=== PATIENT | female | born 1980 | race Caucasian/White ===

== ENCOUNTER 2020-07-10 15:36 | Inpatient (IN) ==
[2020-07-10] MEDS ORDERED: SODIUM CHLORIDE 0.9% 1,000 ML IV STA (16:25)
[2020-07-10] MEDS ORDERED: VANCOMYCIN INJ 1,250 MG in SODIUM CHLORIDE 0.9% 250 ML IV STA (16:37)
[2020-07-10] MEDS ORDERED: CEFEPIME 2,000 MG in SODIUM CHLORIDE 0.9% 100 ML IV STA (16:38)
[2020-07-10 17:26] LABS: Basophils # 0.1 10*3/uL (0.0-0.2); Basophils % 0.4 % (0.0-0.8); Eosinophils % 0.2 % (0.00-10.9); Hematocrit 31.9 VOL% (35.7-47.0); Hemoglobin 10.3 GM/DL (12.0-16.0); Immature Granulocytes % 0.4 %; Immature Granulocytes Absolute 0.06 #; Lymphocytes # 2.2 10*3/uL (1.4-4.0); Lymphocytes % 13.8 % (21.3-54.2); Mean Corpuscular HGB Conc 32.3 GM/DL (32-36); Mean Corpuscular Volume 94.9 FL (87-102); Mean Platelet Volume 10.3 FL (9.6-12.0); Monocytes % 9.3 % (1.7-12.7); Neutrophils % 75.9 % (38.7-73.9); Platelet Count 258 T/CUMM (130-400); Red Blood Count 3.36 MC/CUMM (3.8-5.5); Red Cell Distribution Width 12.6 % (9.3-17.3); White Blood Count 16.3 T/CUMM (4-12)
[2020-07-10 17:37] LABS: Albumin 2.9 G/DL (3.4-5.0); Bilirubin,Total 0.5 MG/DL (0.2-1.0); Calcium 8.2 MG/DL (8.5-10.1); Osmolality,Calculated 278.5 MOS/KG (273-304); Potassium 3.5 MMOL/L (3.5-5.1); Total Protein 6.6 G/DL (6.4-8.2)
[2020-07-10 18:28] LABS: Bacteria,Urine Few /HPF (Few); Bilirubin,Urine Negative (Negative); Blood, Urine Negative (Negative); Glucose,Urine (UA) Negative (Negative); Ketones,Urine 5 mg/dL (Negative); Mucus,Urine Occasional /LPF (Occasional); Nitrite,Urine Positive (Negative); Protein,Urine 30 MG/DL; RBC,Urine 1 /HPF (0-4); Squamous Epithelial Cell,Urine Occasional /HPF (0-10); Urine Appearance Slightly Hazy (Clear); Urine Color Amber (Yellow); Urine Specific Gravity 1.025 (1.001-1.035); WBC,Urine 2 /HPF (0-6)
[2020-07-10 18:29] LABS: Cannabinoid Screen,Urine Negative (Negative); Opiate Screen,Urine Negative (Negative)
[2020-07-10 18:30] LABS: Barbiturates Screen,Urine Negative (Negative); Benzodiazepines Screen,Urine Positive (Negative); Phencyclidine Screen,Urine Negative (Negative)
[2020-07-10] MEDS ORDERED: GLUCAGON 1 MG VIAL IM PRN (18:55)
[2020-07-10] MEDS ORDERED: DOCUSATE SODIUM 100 MG CAPSULE PO PRN (18:55)
[2020-07-10] MEDS ORDERED: ONDANSETRON 4 MG/2 ML VIAL IV PRN (18:55)
[2020-07-10] MEDS ORDERED: DEXTROSE 50% 25 GM/50 ML VIAL IV PRN (18:55)
[2020-07-10] MEDS ORDERED: LORazepam 2 MG/1 ML VIAL IV PRN (19:00)
[2020-07-10] MEDS: LACTULOSE 20 GM/30 ML UDCUP PO SCH ×2 (21:44→23:00)
[2020-07-10] MEDS: levETIRAcetam 500 MG TABLET PO SCH (21:44)
[2020-07-10] MEDS: ENOXAPARIN 40 MG/0.4 ML SYRINGE SUBCUT SCH (21:44)
[2020-07-10] MEDS: GABAPENTIN 300 MG CAPSULE PO SCH (21:44)
[2020-07-10] MEDS: SODIUM CHLORIDE 0.9% 1,000 ML IV SCH (21:45)
[2020-07-11] MEDS: LACTULOSE 20 GM/30 ML UDCUP PO SCH ×6 (02:58→20:47)
[2020-07-11] MEDS: clonazePAM 0.5 MG TABLET PO PRN ×2 (04:03→18:42)
[2020-07-11] MEDS: ACETAMINOPHEN 325 MG TABLET PO PRN ×2 (05:14→09:32)
[2020-07-11 06:01] LABS: Basophils # 0.1 10*3/uL (0.0-0.2); Basophils % 0.3 % (0.0-0.8); Eosinophils # 0.1 10*3/uL (0.0-0.87); Eosinophils % 0.8 % (0.00-10.9); Hematocrit 30.9 VOL% (35.7-47.0); Hemoglobin 9.9 GM/DL (12.0-16.0); Immature Granulocytes % 0.4 %; Immature Granulocytes Absolute 0.06 #; Lymphocytes # 1.9 10*3/uL (1.4-4.0); Lymphocytes % 11.7 % (21.3-54.2); Mean Corpuscular Volume 96.9 FL (87-102); Mean Platelet Volume 10.4 FL (9.6-12.0); Monocytes % 9.1 % (1.7-12.7); Neutrophils % 77.7 % (38.7-73.9); Platelet Count 213 T/CUMM (130-400); Red Blood Count 3.19 MC/CUMM (3.8-5.5); Red Cell Distribution Width 12.7 % (9.3-17.3); White Blood Count 16.1 T/CUMM (4-12)
[2020-07-11] MEDS: VANCOMYCIN INJ 1,000 MG in SODIUM CHLORIDE 0.9% 250 ML IV SCH ×2 (06:09→18:37)
[2020-07-11 06:19] LABS: Calcium 8.1 MG/DL (8.5-10.1); Osmolality,Calculated 274.5 MOS/KG (273-304); Potassium 3.8 MMOL/L (3.5-5.1)
[2020-07-11] MEDS: GABAPENTIN 300 MG CAPSULE PO SCH ×3 (08:42→20:46)
[2020-07-11] MEDS: FLUoxetine 20 MG CAPSULE PO SCH (08:42)
[2020-07-11] MEDS: DIVALPROEX 500 MG TABLET PO SCH (08:42)
[2020-07-11] MEDS: SODIUM CHLORIDE 0.9% 1,000 ML IV SCH ×2 (08:44→22:22)
[2020-07-11] MEDS: cefTRIAXone 2,000 MG in SODIUM CHLORIDE 0.9% 100 ML IV SCH (09:23)
[2020-07-11] MEDS ORDERED: VANCOMYCIN INJ 750 MG in SODIUM CHLORIDE 0.9% 250 ML IV SCH (11:00)
[2020-07-11] MEDS: levETIRAcetam 500 MG TABLET PO SCH ×2 (12:08→20:47)
[2020-07-11 14:39] LABS: Hepatitis C Virus Ab Quant > 11.00 Index; Hepatitis C Virus Ab Result Reactive (NonReactive)
[2020-07-11] MEDS: ENOXAPARIN 40 MG/0.4 ML SYRINGE SUBCUT SCH (20:45)
[2020-07-12] MEDS: LACTULOSE 20 GM/30 ML UDCUP PO SCH ×6 (00:09→21:42)
[2020-07-12 05:47] LABS: Basophils # 0.1 10*3/uL (0.0-0.2); Basophils % 0.4 % (0.0-0.8); Eosinophils # 0.3 10*3/uL (0.0-0.87); Eosinophils % 2.2 % (0.00-10.9); Hematocrit 31.9 VOL% (35.7-47.0); Hemoglobin 9.8 GM/DL (12.0-16.0); Immature Granulocytes % 0.5 %; Immature Granulocytes Absolute 0.06 #; Lymphocytes # 2.4 10*3/uL (1.4-4.0); Lymphocytes % 18.8 % (21.3-54.2); Mean Corpuscular HGB Conc 30.7 GM/DL (32-36); Mean Corpuscular Volume 98.2 FL (87-102); Mean Platelet Volume 11.6 FL (9.6-12.0); Monocytes % 7.2 % (1.7-12.7); Neutrophils % 70.9 % (38.7-73.9); Platelet Count 205 T/CUMM (130-400); Red Blood Count 3.25 MC/CUMM (3.8-5.5); Red Cell Distribution Width 12.6 % (9.3-17.3); White Blood Count 12.9 T/CUMM (4-12)
[2020-07-12 06:42] LABS: Albumin 2.3 G/DL (3.4-5.0); Bilirubin,Total 0.6 MG/DL (0.2-1.0); Calcium 8.3 MG/DL (8.5-10.1); Osmolality,Calculated 273.5 MOS/KG (273-304); Total Protein 6.1 G/DL (6.4-8.2)
[2020-07-12] MEDS: VANCOMYCIN INJ 1,000 MG in SODIUM CHLORIDE 0.9% 250 ML IV SCH ×2 (08:08→20:57)
[2020-07-12] MEDS: DIVALPROEX 500 MG TABLET PO SCH (08:11)
[2020-07-12] MEDS: GABAPENTIN 300 MG CAPSULE PO SCH ×3 (08:11→21:39)
[2020-07-12] MEDS: levETIRAcetam 500 MG TABLET PO SCH ×2 (08:11→21:42)
[2020-07-12] MEDS: FLUoxetine 20 MG CAPSULE PO SCH (08:11)
[2020-07-12] MEDS: cefTRIAXone 2,000 MG in SODIUM CHLORIDE 0.9% 100 ML IV SCH (08:17)
[2020-07-12] MEDS: clonazePAM 0.5 MG TABLET PO PRN (08:17)
[2020-07-12] MEDS ORDERED: MIDAZOLAM 2 MG/2 ML VIAL ONE (12:34)
[2020-07-12] MEDS ORDERED: fentaNYL 100 MCG/2 ML VIAL ONE (12:34)
[2020-07-12] MEDS ORDERED: LIDOCAINE 2% 5 ML VIAL ONE (12:37)
[2020-07-12] MEDS ORDERED: ROCURONIUM 50 MG/5 ML VIAL IV ONE (12:37)
[2020-07-12] MEDS ORDERED: SUCCINYLCHOLINE 200 MG/10 ML VIAL ONE (12:37)
[2020-07-12] MEDS ORDERED: propofoL 200 MG/20 ML VIAL IV ONE (12:37)
[2020-07-12] MEDS ORDERED: SEVOFLURANE 1 UNIT/15 MINUTE INH ONE ×4 (12:39→14:07)
[2020-07-12] MEDS ORDERED: HEPARIN 5,000 UNIT/1 ML VIAL ONE (12:42)
[2020-07-12] MEDS ORDERED: ONDANSETRON 4 MG/2 ML VIAL ONE (13:33)
[2020-07-12] MEDS ORDERED: DEXAMETHASONE 4 MG/1 ML VIAL ONE (13:35)
[2020-07-12] MEDS ORDERED: PHENYLEPHRINE 1 MG/10 ML SYRINGE IV ONE ×2 (13:36→13:59)
[2020-07-12] MEDS ORDERED: ePHEDrine 50 MG/ML VIAL ONE (13:41)
[2020-07-12] MEDS ORDERED: SODIUM CHLORIDE 0.9% 1,000 ML IV ONE (13:55)
[2020-07-12] MEDS ORDERED: BUPIVACAINE MPF 0.25% 30 ML VIAL ONE (14:19)
[2020-07-12] MEDS ORDERED: LIDOCAINE 1%/EPI INJ 20 ML VIAL ONE (14:19)
[2020-07-12] MEDS: SODIUM CHLORIDE 0.9% 1,000 ML IV SCH ×2 (16:44)
[2020-07-12] MEDS: ENOXAPARIN 40 MG/0.4 ML SYRINGE SUBCUT SCH (21:42)
[2020-07-13] MEDS: SODIUM CHLORIDE 0.9% 1,000 ML IV SCH ×5 (00:14→21:27)
[2020-07-13] MEDS: LACTULOSE 20 GM/30 ML UDCUP PO SCH ×6 (05:11→21:26)
[2020-07-13 05:28] LABS: Basophils % 0.2 % (0.0-0.8); Hematocrit 29.3 VOL% (35.7-47.0); Hemoglobin 9.1 GM/DL (12.0-16.0); Immature Granulocytes % 1.5 %; Immature Granulocytes Absolute 0.16 #; Lymphocytes # 1.2 10*3/uL (1.4-4.0); Lymphocytes % 11.1 % (21.3-54.2); Mean Corpuscular HGB Conc 31.1 GM/DL (32-36); Mean Platelet Volume 11.6 FL (9.6-12.0); Monocytes % 5.4 % (1.7-12.7); Neutrophils % 81.8 % (38.7-73.9); Platelet Count 210 T/CUMM (130-400); Red Blood Count 3.02 MC/CUMM (3.8-5.5); Red Cell Distribution Width 12.5 % (9.3-17.3)
[2020-07-13 05:55] LABS: Osmolality,Calculated 273.5 MOS/KG (273-304); Potassium 4.5 MMOL/L (3.5-5.1)
[2020-07-13] MEDS: VANCOMYCIN INJ 1,000 MG in SODIUM CHLORIDE 0.9% 250 ML IV SCH ×3 (07:39→21:26)
[2020-07-13] MEDS: FLUoxetine 20 MG CAPSULE PO SCH (09:10)
[2020-07-13] MEDS: GABAPENTIN 300 MG CAPSULE PO SCH ×3 (09:11→21:20)
[2020-07-13] MEDS: DIVALPROEX 500 MG TABLET PO SCH (09:12)
[2020-07-13] MEDS: levETIRAcetam 500 MG TABLET PO SCH ×2 (09:12→21:20)
[2020-07-13] MEDS: cefTRIAXone 2,000 MG in SODIUM CHLORIDE 0.9% 100 ML IV SCH (09:13)
[2020-07-13] MEDS: ENOXAPARIN 40 MG/0.4 ML SYRINGE SUBCUT SCH (21:20)
[2020-07-14] MEDS: LACTULOSE 20 GM/30 ML UDCUP PO SCH ×6 (01:58→20:53)
[2020-07-14] MEDS: clonazePAM 0.5 MG TABLET PO PRN ×2 (02:01→22:13)
[2020-07-14 06:11] LABS: Basophils # 0.1 10*3/uL (0.0-0.2); Basophils % 1.1 % (0.0-0.8); Eosinophils # 0.2 10*3/uL (0.0-0.87); Eosinophils % 3.5 % (0.00-10.9); Hematocrit 33.1 VOL% (35.7-47.0); Hemoglobin 10.1 GM/DL (12.0-16.0); Immature Granulocytes % 0.3 %; Immature Granulocytes Absolute 0.02 #; Lymphocytes # 3.1 10*3/uL (1.4-4.0); Mean Corpuscular HGB Conc 30.5 GM/DL (32-36); Mean Platelet Volume 12.3 FL (9.6-12.0); Monocytes % 6.5 % (1.7-12.7); Neutrophils % 39.6 % (38.7-73.9); Platelet Count 144 T/CUMM (130-400); Red Blood Count 3.31 MC/CUMM (3.8-5.5); Red Cell Distribution Width 12.8 % (9.3-17.3); White Blood Count 6.3 T/CUMM (4-12)
[2020-07-14 06:21] LABS: Calcium 7.7 MG/DL (8.5-10.1); Osmolality,Calculated 279.1 MOS/KG (273-304)
[2020-07-14] MEDS: VANCOMYCIN INJ 1,000 MG in SODIUM CHLORIDE 0.9% 250 ML IV SCH ×3 (06:27→20:52)
[2020-07-14] MEDS: FLUoxetine 20 MG CAPSULE PO SCH (08:28)
[2020-07-14] MEDS: levETIRAcetam 500 MG TABLET PO SCH ×2 (08:28→20:53)
[2020-07-14] MEDS: GABAPENTIN 300 MG CAPSULE PO SCH ×3 (08:29→20:53)
[2020-07-14] MEDS: DIVALPROEX 500 MG TABLET PO SCH (08:29)
[2020-07-14] MEDS: cefTRIAXone 2,000 MG in SODIUM CHLORIDE 0.9% 100 ML IV SCH (08:30)
[2020-07-14] MEDS: SODIUM CHLORIDE 0.9% 1,000 ML IV SCH (11:34)
[2020-07-14] MEDS: ENOXAPARIN 40 MG/0.4 ML SYRINGE SUBCUT SCH (20:53)
[2020-07-15] MEDS: LACTULOSE 20 GM/30 ML UDCUP PO SCH ×6 (01:28→21:15)
[2020-07-15] MEDS: SODIUM CHLORIDE 0.9% 1,000 ML IV SCH (01:29)
[2020-07-15] MEDS: VANCOMYCIN INJ 1,000 MG in SODIUM CHLORIDE 0.9% 250 ML IV SCH ×2 (05:50→17:33)
[2020-07-15 06:04] LABS: Basophils # 0.1 10*3/uL (0.0-0.2); Basophils % 1.1 % (0.0-0.8); Eosinophils # 0.3 10*3/uL (0.0-0.87); Eosinophils % 5.3 % (0.00-10.9); Hematocrit 28.8 VOL% (35.7-47.0); Hemoglobin 9.1 GM/DL (12.0-16.0); Immature Granulocytes % 0.4 %; Immature Granulocytes Absolute 0.02 #; Lymphocytes # 2.3 10*3/uL (1.4-4.0); Lymphocytes % 39.9 % (21.3-54.2); Mean Corpuscular HGB Conc 31.6 GM/DL (32-36); Mean Corpuscular Volume 95.7 FL (87-102); Mean Platelet Volume 11.2 FL (9.6-12.0); Monocytes % 7.6 % (1.7-12.7); Neutrophils % 45.7 % (38.7-73.9); Platelet Count 250 T/CUMM (130-400); Red Blood Count 3.01 MC/CUMM (3.8-5.5); Red Cell Distribution Width 12.4 % (9.3-17.3); White Blood Count 5.7 T/CUMM (4-12)
[2020-07-15] MEDS: DIVALPROEX 500 MG TABLET PO SCH (08:12)
[2020-07-15] MEDS: FLUoxetine 20 MG CAPSULE PO SCH (08:12)
[2020-07-15] MEDS: levETIRAcetam 500 MG TABLET PO SCH ×2 (08:12→21:15)
[2020-07-15] MEDS: GABAPENTIN 300 MG CAPSULE PO SCH ×3 (08:12→22:34)
[2020-07-15] MEDS: cefTRIAXone 2,000 MG in SODIUM CHLORIDE 0.9% 100 ML IV SCH (08:13)
[2020-07-15 10:32] LABS: Calcium 7.8 MG/DL (8.5-10.1); Osmolality,Calculated 275.3 MOS/KG (273-304); Potassium 3.4 MMOL/L (3.5-5.1)
[2020-07-15] MEDS ORDERED: POTASSIUM CHLORIDE 20 MEQ/15 ML UDCUP PO ONE (12:13)
[2020-07-15] MEDS: clonazePAM 0.5 MG TABLET PO PRN (21:15)
[2020-07-15] MEDS: ENOXAPARIN 40 MG/0.4 ML SYRINGE SUBCUT SCH (21:15)
[2020-07-16] MEDS: LACTULOSE 20 GM/30 ML UDCUP PO SCH ×3 (01:42→09:06)
[2020-07-16 05:10] LABS: Basophils # 0.1 10*3/uL (0.0-0.2); Basophils % 1.3 % (0.0-0.8); Eosinophils # 0.3 10*3/uL (0.0-0.87); Eosinophils % 4.3 % (0.00-10.9); Hematocrit 28.3 VOL% (35.7-47.0); Hemoglobin 8.8 GM/DL (12.0-16.0); Immature Granulocytes % 0.3 %; Immature Granulocytes Absolute 0.02 #; Lymphocytes # 3.1 10*3/uL (1.4-4.0); Lymphocytes % 43.8 % (21.3-54.2); Mean Corpuscular HGB Conc 31.1 GM/DL (32-36); Mean Corpuscular Volume 95.3 FL (87-102); Monocytes % 8.4 % (1.7-12.7); Neutrophils % 41.9 % (38.7-73.9); Platelet Count 174 T/CUMM (130-400); Red Blood Count 2.97 MC/CUMM (3.8-5.5); Red Cell Distribution Width 12.2 % (9.3-17.3); White Blood Count 7.1 T/CUMM (4-12)
[2020-07-16 05:33] LABS: Calcium 8.2 MG/DL (8.5-10.1); Osmolality,Calculated 275.4 MOS/KG (273-304); Potassium 3.8 MMOL/L (3.5-5.1)
[2020-07-16 05:42] LABS: Eosinophils 2 % (0-10); Hypochromasia 1+; Lymphocytes 53 % (20-55); Platelet Estimate Normal; Segmented Neutrophils 39 % (50-85); Total Cells Counted 100
[2020-07-16] MEDS: VANCOMYCIN INJ 1,000 MG in SODIUM CHLORIDE 0.9% 250 ML IV SCH (06:12)
[2020-07-16 07:22] VITALS: BP 110/61
[2020-07-16] MEDS: levETIRAcetam 500 MG TABLET PO SCH (09:06)
[2020-07-16] MEDS: cefTRIAXone 2,000 MG in SODIUM CHLORIDE 0.9% 100 ML IV SCH (09:07)
[2020-07-16] MEDS: GABAPENTIN 300 MG CAPSULE PO SCH (09:07)
[2020-07-16] MEDS: DIVALPROEX 500 MG TABLET PO SCH (09:07)
[2020-07-16] MEDS: FLUoxetine 20 MG CAPSULE PO SCH (09:07)
== END 2020-07-16 11:06 | disposition home or self-care (01) | DRG 41 ==
LOC: EDUNIT# → EDBD → N.EDINP 15:36 → N.ED 15:36 → N.5E 20:53 → SUATTDRO 07-11 09:58
PROVIDERS: ADMIT Internal Medicine; ATTEND Internal Medicine
PROC: VAVDCFI (2020-07-12 13:14)